=== PATIENT | male | born 1970 | race Caucasian/White ===

== ENCOUNTER 2016-11-30 23:34 | Observation (INO) | payer BC ==
[~2016-11-30] VITALS: Ht 177.8 cm; Wt 87.0 kg
[2016-11-30 23:40] VITALS: BP 122/83; PULSE 98; RESP 16; TEMP 98.6; O2SAT 97
[2016-12-01] MEDS ORDERED: TETANUS/DIPHTHERIA TOXOID ADULT 0.5 ML VIAL IM ONE (00:30)
[2016-12-01] MEDS ORDERED: ceFAZolin 2 GM PREMIX 50 ML IV ONE (00:30)
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
[2016-12-01 00:54] LABS: AUTOMATED NEUTROPHIL # 5.5 TH/MM3 (1.8-7.7); BASOPHIL % 0.5 % (0.0-2.0); EOSINOPHIL % 0.2 % (0.0-4.0); HEMATOCRIT 47.3 % (39.0-51.0); HEMO FLAGS DIFF FINAL; LYMPH % 11.6 % (9.0-44.0); LYMPHOCYTE # 0.8 TH/MM3 (1.0-4.8); MEAN CELL VOLUME 89.8 FL (80.0-100.0); MEAN CORPUSCULAR HEMOGLOBIN 30.1 PG (27.0-34.0); MEAN CORPUSCULAR HGB CONC 33.5 % (32.0-36.0); MONO % 7.5 % (0.0-8.0); NEUT % 80.2 % (16.0-70.0); PLATELET COUNT 170 TH/MM3 (150-450); RED BLOOD COUNT 5.27 MIL/MM3 (4.50-5.90); RED CELL DISTRIBUTION WIDTH 14.4 % (11.6-17.2); WHITE BLOOD COUNT 6.8 TH/MM3 (4.0-11.0)
[2016-12-01] MEDS ORDERED: ONDANSETRON HCL 4 MG/2 ML VIAL IV PUSH ONE ×2 (01:00→12:00)
[2016-12-01] MEDS ORDERED: MORPHINE SULFATE 4 MG/ML INJ IV PUSH ONE ×2 (01:00→03:15)
[2016-12-01 01:04] LABS: APTT (PATIENT) 24.5 SEC (24.3-30.1); INTERNATIONAL NORMALIZED RATIO 0.9 RATIO
[2016-12-01 01:08] LABS: BICARBONATE 28.3 MEQ/L (21.0-32.0); POTASSIUM 3.8 MEQ/L (3.5-5.1)
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
[2016-12-01 02:00] VITALS: BP 122/68; PULSE 88; RESP 20; O2SAT 96
[2016-12-01] MEDS ORDERED: SODIUM CHLORIDE 0.9% FLUSH 10 ML FLUSH IV FLUSH PRN (02:15)
[2016-12-01] MEDS ORDERED: NALOXONE HCL 0.4 MG/ML AMP IV PRN (02:15)
[2016-12-01 05:57] VITALS: BP 125/79; PULSE 91; RESP 20; TEMP 98.8; O2SAT 96
[2016-12-01] MEDS: MORPHINE SULFATE 4 MG/ML INJ IV PUSH PRN ×2 (06:37→20:22)
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
[2016-12-01] MEDS: SODIUM CHLORIDE 0.9% FLUSH 10 ML FLUSH IV FLUSH SCH ×2 (09:00→21:00)
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
[2016-12-01] MEDS ORDERED: ENALAPRILAT 1.25 MG/ML VIAL IV PUSH PRN (09:15)
[2016-12-01] MEDS ORDERED: DOCUSATE SODIUM 50 MG/SENNA 8.6 MG TAB PO PRN (09:15)
[2016-12-01] MEDS ORDERED: ONDANSETRON HCL 4 MG/2 ML VIAL IV PRN (09:15)
[2016-12-01] MEDS ORDERED: ACETAMINOPHEN 325 MG TAB PO PRN (09:15)
[2016-12-01] MEDS ORDERED: HYDR-3288 PO (09:52)
[2016-12-01] MEDS ORDERED: ceFAZolin INJ 1,000 MG VIAL ONE (10:21)
[2016-12-01] MEDS ORDERED: LIDOCAINE 2% JELLY 30 ML TUBE ONE (10:21)
[2016-12-01] MEDS ORDERED: GENTAMICIN SULFATE 80 MG/2 ML VIAL ONE ×2 (10:21→10:22)
[2016-12-01] MEDS ORDERED: MINERAL OIL 10 ML VIAL ONE (10:22)
[2016-12-01 10:33] VITALS: BP 107/85; PULSE 114; RESP 16; O2SAT 96
[2016-12-01] MEDS ORDERED: FAMOTIDINE 20 MG/2 ML VIAL ONE (11:29)
[2016-12-01] MEDS ORDERED: MIDAZOLAM HCL 2 MG/2 ML VIAL ONE (11:29)
[2016-12-01] MEDS ORDERED: PROPOFOL 200 MG/20 ML AMP IV ONE (12:00)
[2016-12-01] MEDS ORDERED: NEOSTIGMINE 3 MG/3 ML SYR IV ONE (12:00)
[2016-12-01] MEDS ORDERED: LACTATED RINGER'S 1000 ML INJ 1,000 ML IV ONE (12:00)
[2016-12-01] MEDS ORDERED: CEPH-460 PO (12:04)
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
[2016-12-01] MEDS ORDERED: Post-op Orders (for Pharmacy) MISC XX ONE (12:15)
[2016-12-01] MEDS ORDERED: MORPHINE SULFATE 4 MG/ML INJ IV PUSH PRN (12:15)
[2016-12-01] MEDS ORDERED: ACETAMINOPHEN/HYDROcodone 325 MG/7.5 MG TAB PO PRN (12:15)
[2016-12-01] MEDS ORDERED: SODIUM CHLORIDE 0.9% FLUSH 5 ML FLUSH IVF PRN (12:15)
[2016-12-01] MEDS ORDERED: diphenhydrAMINE HCL 25 MG CAP PO PRN (12:15)
[2016-12-01] MEDS ORDERED: *MEPERIDINE 25 MG INJ VIAL PERIprocedural Use ONLY ONE (12:34)
[2016-12-01] MEDS ORDERED: DO NOT ADM ANY ANTICOAGULANT DRUGS PRN (12:35)
[2016-12-01] MEDS ORDERED: fentaNYL CITRATE 250 MCG/5 ML AMP ONE (12:43)
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
[2016-12-01] MEDS ORDERED: *morphine SULFATE 8 MG/ML PERIprocedure ONLY ONE (14:47)
[2016-12-01] MEDS: ACETAMINOPHEN/HYDROcodone 325 MG/7.5 MG TAB PO PRN (15:49)
[2016-12-01 16:00] VITALS: BP 131/81; PULSE 104; PULSE 95; RESP 17; TEMP 98.5; O2SAT 93
[2016-12-01 20:00] VITALS: BP 136/82; PULSE 101; PULSE 87; RESP 17; TEMP 98.1; O2SAT 95
[2016-12-01] MEDS: ceFAZolin 2 GM PREMIX 50 ML IV SCH (20:21)
[2016-12-01] MEDS: SODIUM CHLORIDE 0.9% FLUSH 5 ML FLUSH IVF SCH (21:00)
[2016-12-01] MEDS: GENTAMICIN 80 MG PREMIX 100 ML IV SCH (23:27)
[2016-12-02] VITALS: BP 124/81; PULSE 81; RESP 17; TEMP 97.6; O2SAT 96
[2016-12-02] MEDS: ceFAZolin 2 GM PREMIX 50 ML IV SCH ×2 (02:06→11:37)
[2016-12-02] MEDS: GENTAMICIN 80 MG PREMIX 100 ML IV SCH ×2 (02:53→12:12)
[2016-12-02 04:00] VITALS: BP 128/83; PULSE 79; RESP 17; TEMP 98; O2SAT 95
--- NOTE | 2016-12-02 06:58 | PD.ORT.PN ---
Subjective Subjective Remarks POD 1 s/p I&D with wound closure right forearm doing well. pain controlled. Objective Vitals Vital Signs Date Time Temp Pulse Resp B/P Pulse Ox O2 Delivery O2 Flow Rate FiO2 12/02/16 04:00 98.0 79 17 128/83 95 12/02/16 00:00 97.6 81 17 124/81 96 12/01/16 20:00 101 12/01/16 20:00 98.1 87 17 136/82 95 12/01/16 16:49 18 12/01/16 16:00 98.5 95 17 131/81 93 12/01/16 16:00 104 12/01/16 14:00 98.1 88 12 141/89 97 Nasal Cannula 2 12/01/16 13:45 91 12 140/89 98 Nasal Cannula 2 12/01/16 13:30 87 12 140/83 98 Nasal Cannula 2 12/01/16 13:15 84 12 128/91 98 Nasal Cannula 2 12/01/16 13:00 75 12 135/90 99 Nasal Cannula 2 12/01/16 12:45 89 12 140/92 98 Nasal Cannula 2 12/01/16 12:33 98.1 101 12 143/99 98 Nasal Cannula 2 12/01/16 10:33 114 16 107/85 96 Room Air 12/01/16 08:38 14 I/O 12/01/16 12/01/16 12/01/16 12/02/16 12/02/16 12/02/16 07:00 15:00 23:00 07:00 15:00 23:00 Intake Total 1000 ml 240 ml 240 ml Output Total 25 ml 500 ml 600 ml Balance 975 ml -260 ml -360 ml Intake Oral 240 ml 240 ml Other 1000 ml Output Urine Total 500 ml 600 ml Estimated Blood Loss 25 ml Result Diagram: 12/01/16 0030 12/01/16 0030 Imaging Last 24 hours Impressions Radius/Ulna X-Ray 12/01/1624 Signed Impressions: Service Date/Time: Thursday, December 01, 2016 00:49 - CONCLUSION: Unremarkable examination of the right forearm. Joel Schmitz MD Hand X-Ray 12/01/16 0025 Signed Impressions: Service Date/Time: Thursday, December 01, 2016 00:51 - CONCLUSION: Comminuted nondisplaced fracture involving the fifth proximal phalangeal bone. Joel Schmitz MD Elbow X-Ray 12/01/16 0025 Signed Impressions: Service Date/Time: Thursday, December 01, 2016 00:47 - CONCLUSION: Nondisplaced radial head fracture. Joel Schmitz MD Objective Remarks RUE: +long arm splint in good repair. NVI Assessment & Plan Assessment and Plan 1) Right Radial head fx with laceration and right 5th MC and prox phalynx fractures s/p I&D and closure - POD 1 -NWB -maintain splint at all times -continue IV Abx while admitted -ortho cleared for DC home and transition to PO keflex upon discharge -f/u with ortho at home in 2 weeks Garrick Gann Dec 02, 2016 06:58
[2016-12-02] MEDS: ACETAMINOPHEN/HYDROcodone 325 MG/7.5 MG TAB PO PRN (07:57)
[2016-12-02] MEDS: SODIUM CHLORIDE 0.9% FLUSH 10 ML FLUSH IV FLUSH SCH (07:57)
[2016-12-02] MEDS: SODIUM CHLORIDE 0.9% FLUSH 5 ML FLUSH IVF SCH (07:58)
[2016-12-02 08:00] VITALS: BP 141/90; PULSE 103; PULSE 86; RESP 18; TEMP 98.7; O2SAT 95
[2016-12-02 09:26] VITALS: O2SAT 95
--- NOTE | 2016-12-02 09:39 | HHI.PR ---
Subjective Remarks Follow-up Right Radial head fracture with laceration 12/02/16-patient seen and examined, he is status post Irrigation and debridement of right forearm wound, closure of right forearm wound 12/01/16, denies any significant right arm pain. Currently afebrile Objective Vitals Vital Signs Date Time Temp Pulse Resp B/P Pulse Ox O2 Delivery O2 Flow Rate FiO2 12/02/16 09:26 95 21 12/02/16 04:00 98.0 79 17 128/83 95 12/02/16 00:00 97.6 81 17 124/81 96 12/01/16 20:00 101 12/01/16 20:00 98.1 87 17 136/82 95 12/01/16 16:49 18 12/01/16 16:00 98.5 95 17 131/81 93 12/01/16 16:00 104 12/01/16 14:00 98.1 88 12 141/89 97 Nasal Cannula 2 12/01/16 13:45 91 12 140/89 98 Nasal Cannula 2 12/01/16 13:30 87 12 140/83 98 Nasal Cannula 2 12/01/16 13:15 84 12 128/91 98 Nasal Cannula 2 12/01/16 13:00 75 12 135/90 99 Nasal Cannula 2 12/01/16 12:45 89 12 140/92 98 Nasal Cannula 2 12/01/16 12:33 98.1 101 12 143/99 98 Nasal Cannula 2 12/01/16 10:33 114 16 107/85 96 Room Air I/O 12/01/16 12/01/16 12/01/16 12/02/16 12/02/16 12/02/16 07:00 15:00 23:00 07:00 15:00 23:00 Intake Total 1000 ml 240 ml 240 ml Output Total 25 ml 500 ml 600 ml Balance 975 ml -260 ml -360 ml Intake Oral 240 ml 240 ml Other 1000 ml Output Urine Total 500 ml 600 ml Estimated Blood Loss 25 ml Result Diagram: 12/01/162912/01/16 0030 Objective Remarks GENERAL: NAD SKIN: Warm and dry. HEAD: Normocephalic. EYES: No scleral icterus. No injection or drainage. NECK: Supple, trachea midline. No JVD or lymphadenopathy. CARDIOVASCULAR: Regular rate and rhythm without murmurs, gallops, or rubs. RESPIRATORY: Breath sounds equal bilaterally. No accessory muscle use. GASTROINTESTINAL: Abdomen soft, non-tender, nondistended. MUSCULOSKELETAL: No cyanosis, or edema. RUE in dressing-neurovascular intact; sling in place BACK: Nontender without obvious deformity. No CVA tenderness. Procedures Irrigation and debridement of right forearm wound, closure of right forearm wound 12/01/16 A/P Problem List: (1) Fracture of finger of right hand ICD Code: S62.609A Status: Acute (2) Fracture of radial head, right, closed ICD Code: S52.121A Status: Acute (3) Laceration of right elbow ICD Code: S51.011A Status: Acute (4) GERD (gastroesophageal reflux disease) ICD Code: K21.9 Status: Acute Assessment and Plan 46-year-old man with Right Radial head fracture with laceration: -Hand x-ray with finding of Comminuted nondisplaced fracture involving the fifth proximal phalangeal bone -Elbow x-ray with finding of Nondisplaced radial head fracture -Orthopedic surgery ff and patient is status post Irrigation and debridement of right forearm wound, closure of right forearm wound 12/01/16 -Currently on IV antibiotic which patient will complete today and switch to by mouth Keflex 10 days on discharge -Continue with sling and the patient follows with orthopedic surgery in 2 weeks GERD: PPI DVT: Ambulatory Discharge Planning Discharge patient to home Condition on discharge: Improved Regular Diet as tolerated Ad Angelina activity Rx written: Keflex 500 by mouth 4 times a day 10 days, narcotics per orthopedic surgery Follow-up with primary care physician in one week Orthopedic surgery in 2 weeks Problem Qualifiers (1) Fracture of finger of right hand: Qualified Code: S62.609A - Fracture of finger of right hand, closed, initial encounter (2) Fracture of radial head, right, closed: Qualified Code: S52.124A - Closed nondisplaced fracture of head of right radius , initial encounter (3) Laceration of right elbow: Qualified Code: S51.011A - Laceration of right elbow, initial encounter Casper Faust MD Dec 02, 2016 09:39
[2016-12-02] MEDS ORDERED: PERI8.6T PO (09:45)
== END 2016-12-02 13:20 | disposition home or self-care (01) ==
LOC: NEPC 23:34 → INTOOBSV 12-01 02:17 → NEDA 12-01 02:17 → NEDH 12-01 06:17 → N07A 12-01 15:16
PROVIDERS: ADMIT Hospitalist; ATTEND Hospitalist
DX: M25.521 Pain in right elbow (principal); M79.631 Pain in right forearm; M79.641 Pain in right hand; S52.124A Nondisplaced fracture of head of right radius, initial encounter for closed fracture; S62.646A Nondisplaced fracture of proximal phalanx of right little finger, initial encounter for closed fracture; S51.811A Laceration without foreign body of right forearm, initial encounter; Z23 Encounter for immunization; K21.9 Gastro-esophageal reflux disease without esophagitis; V86.69XA Passenger of other special all-terrain or other off-road motor vehicle injured in nontraffic accident, initial encounter; Z72.89 Other problems related to lifestyle
CPT/HCPCS: 01810; 11043; 73080; 73090; 73130; 80048; 85025; 85610; 85730; 90471; 90714; 94150; 96365; 96366; 96375; 99284; G0378; J0690; J1580; J2175; J2250; J2270; J2405; J2710; J3010; J7120